=== PATIENT | female | born 1965 | race American Indian/Alaskan Native ===

== ENCOUNTER 2021-11-24 14:04 | Outpatient (CLI) | payer OTHER ==
--- NOTE | 2021-11-24 16:13 | XRay Report ---
Bilateral knees INDICATION: Knee pain FINDINGS: There is degenerative change with joint space narrowing in the lateral compartments. Mild p atellofemoral degenerative change bilaterally. No acute fractures seen. IMPRESSION: Degenerative change in bilateral kidneys Signer Name: Christian Jorgensen MD Signed: 11/24/2021 4:09 PM Workstation Name: [id number]
== END 2021-11-24 14:05 | disposition home or self-care (01) ==
LOC: XRAY 14:04
PROVIDERS: ATTEND Orthopaedic Surgery
DX: M17.0 Bilateral primary osteoarthritis of knee (principal)
CPT/HCPCS: 73565